=== PATIENT | female | born 1995 | race African-American/Black ===

== ENCOUNTER 2017-03-17 14:57 | Inpatient (IN) ==
--- NOTE | 2017-03-17 15:45 | Diag Imaging Result Doc PS360 ---
US OBS COMPLETE > 14 WKS - 03/17/2017 INDICATION: possible water broke TECHNIQUE: COMPARISON: None FINDINGS: There is a single intrauterine . Estimated gestational age is 18 weeks three days +/- 10 days. Estimated delivery date is 08/15/2017. Positioning is cephalic. Placenta is anterior. There is severe oligohydramnios. Cervix is closed measuring 3.5 cm. heart rate is 194 bpm. anatomy is grossly normal. No pelvic free fluid. IMPRESSION: Severe oligohydramnios compatible with premature rupture of membranes. Fetus is previable. Electronically signed by Yaniv Harkins 03/17/2017 3:42 PM
--- NOTE | 2017-03-17 15:55 | PROVIDER DOCUMENTATION ---
This chart was entered by Tenzin Oliver Scribe, acting as scribe for Ronald Garvey MD. HPI-Female /OB/Breast - General Chief Complaint: Female Stated Complaint: states water broke Time Seen by Provider: 03/17/17 14:59 Source: reports: patient Allergies/Adverse Reactions: Patient Allergies Allergy/AdvReac Type Severity Reaction Status Date / Time No Known Allergies Allergy Verified 03/17/17 16:32 Home Medications: Home Medication List Medication Instructions Recorded Confirmed Last Taken Type Pediatric Multivit Comb. No.49 1 cap PO DAILY 03/17/17 03/17/17 Unknown History [Flintstones Gummies] - History of Present Illness-Female /OB Nature of Presenting Problem: patient is a 21 y/o F that presents after feeling that she had to go to bathroom and had gush of clear fluid come out. She has had back pain since but no abdominal pain or bleeding. G 2 P 0 Ab 1, similar symptoms from previous . Patient has had no care, unsure when her LMP. Does patient report she is ?: Yes (maybe 18 weeks) Location of complaint: reports: other (back) Quality of Pain: reports: aching Severity in ED: reports: moderate Onset/Duration: reports: abrupt, just prior to arrival Timing: reports: still present, constant Context/Activities at Onset: reports: none Related Symptoms: reports: vaginal fluid leakage, other (back pain) Leakage of Fluid: heavy gush Sexual intercourse history: reports: Less Than 2 Months Ago, Single Partner Contraception: reports: none Modifying Factors: improves with: nothing Associated Symptoms: reports: back/neck pain. denies: nausea, vomiting Similar Symptoms Previously?: Yes Recently seen or treated by another doctor?: No - LMP/ History Menstrual Status: currently : 2 Para: 0 : 1 Prior Delivery: HCG confirmation: home preg test Care: none Review of Systems - Adult - REVIEW OF SYSTEMS - ADULT Constitutional: denies: chills, fever Eyes: denies: decreased vision, blurred vision, double vision Ears, Nose, Mouth & Throat: denies: ear pain, sinus problem, throat pain, throat swelling Cardiovascular: denies: chest pain, palpitations Respiratory: denies: cough, shortness of breath, wheezing Gastrointestinal: denies: abdominal pain, diarrhea, nausea, vomiting Genitourinary: reports: other (leakage of fluid). denies: dysuria Musculoskeletal: reports: back pain. denies: joint pain Integumentary: reports: no symptoms reported Neurological: denies: dizziness/vertigo, headache/migraines, syncope Psychiatric: reports: no symptoms reported Endocrine: reports: no symptoms reported Hematologic/Lymphatic: reports: no symptoms reported Allergic/Immunologic: reports: no symptoms reported All Other Systems: Reviewed and Negative Past History - Adult - PAST MEDICAL HISTORY-ADULT Review of Records: reports: Old Records Reviewed, Nursing Assessment Review, Medications Reviewed - PRIOR SURGERIES/PROCEDURES Surgical/Procedure History: reports: - IMMUNIZATION STATUS Childhood Immunizations: See Nurse Assessment Flu Vaccine: See Nurse Assessment - FAMILY HISTORY Family History: reviewed, not pertinent - SOCIAL HISTORY Smoking: non-smoker Living Situation: family Physical Exam-General - PHYSICAL EXAM-ADULT Initial Vital Signs Reviewed: Yes - CONSTITUTIONAL General Appearance: alert, mild distress - EYES Eyes: PERRL/EOMI, pink conjunctivae - HEAD, EARS, NOSE, MOUTH & THROAT HENMT: normocephalic/atraumatic, moist mucous membranes, normal ENT inspection - NECK Neck: non-tender, full range of motion, normal inspection - RESPIRATORY Respiratory: lungs clear, normal breath sounds, no respiratory distress, no accessory muscle use - CARDIOVASCULAR Cardiovascular: regular rate, rhythm, no edema, no murmur - GASTROINTESTINAL (ABDOMEN) Abdominal Exam: normal bowel sounds, non tender, soft, no organomegaly, no pulsatile mass - GENITOURINARY Female Genitalia/Pelvic Exam: other (Sterile Glove Exam performed, cervix soft, OS hard to palpate, as hand was being removed gush of fluid immediately came out ). negative: herpes-like ulcerations, lesions, mass - MUSCULOSKELETAL Back Exam: no CVA tenderness, no vertebral tenderness Extremity: normal range of motion, normal inspection, no pedal edema - SKIN Integumentary: normal color, warm/dry - NEUROLOGIC Neurologic: seamer operator II-XII nml as tested, no motor/sensory deficits - PSYCHIATRIC Psych/Mental Status: normal mood/affect, normal thought content, normal thought process, oriented x 3 Progress - PLAN OF CARE/RESULTS Progress/Plan/Lab Results: Vital Signs - 8 hr 03/17/17 14:58 09/21/17 15:14 Temperature 98.0 F Pulse Rate 97 H 96 H Respiratory Rate 20 14 Blood Pressure 143/77 131/80 O2 Sat by Pulse Oximetry 100 100 Laboratory Results - last 24 hr 03/17/17 03/17/17 03/17/17 13:50 15:00 15:18 WBC 9.16 RBC 3.92 L Hgb 10.5 L Hct 31.9 L MCV 81.4 MCH 26.8 L MCHC 32.9 L RDW Std Deviation 13.6 Plt Count 308 MPV 11.5 H Immature Gran % (Auto) 0.1 Neut % (Auto) 59.1 Lymph % (Auto) 33.6 Hartley % (Auto) 6.6 Eos % (Auto) 0.5 Baso % (Auto) 0.1 Immature Gran # (Auto) 0.01 Neut # (Auto) 5.41 Lymph # (Auto) 3.08 Hartley # (Auto) 0.60 H Eos # (Auto) 0.05 Baso # (Auto) 0.01 Ser , Semi-Qnt 8613.0 Membranes Rupture POSITIVE Orders Category Date Time Status US OBS COMPLETE > 14 WKS [US] Stat Exams 03/17/17 14:59 Completed QUANT TEST Stat Lab 03/17/17 15:18 Completed RUPTURE OF MEMBRANE EVALUATION [SERO] Stat Lab 03/17/17 15:00 Completed Stat u/s and Quant preg ordered, L&D was notified, they came and did swab to test for Amniotic fluid( positive result), relay worker was notified of patient, was contacted and he felt she was where need to be at in the ER 1525-U/S took patient over to radiology by nursing staff , even though u/s bedside was requested. U/S responded that the machine was too big to bring over to room and attempted to get her in a W/C FHTs were 140 bpm 1545- called U/S report to , patient has about 18 week old fetus but no Amniotic fluid noted 1547- paged Result Diagrams: 03/17/17 13:50 - ULTRASOUND (By Radiology) 1 US Study: Transvaginal (ob) Impression: Abnormal US Results: severe oligohydramnios compatible w/ premature ruputre of membranes , 18 w + - CONSULTS/PCP/HOSPITALIST Notification #1 *Consult/PCP/Hospitalist*: Time Discussed: 15:51 Departure - Departure Date of Disposition Decision: 03/17/17 Time of Disposition Decision: 15:52 DIAGNOSIS: Premature rupture of membranes Disposition: OTHER 70 Certified Medical Emergency: Emergent Condition: Stable - Critical Care Note This patient required my direct & personal management of CC.: Yes Total Time (mins): 45 Critical Care Statement: This patient required my direct personal management to treat or rule out processes, the absence of which, could potentiallly result in sudden, clinically significant life or limb threatening deterioration. Attestation - Physician/ LATASHA Attestation The physician spent face to face time with patient:: Yes Advanced Practice Provider documentation review:: Supervising physician onsite and consulted in the evaluation and care of this patient. The physician did have a face to face encounter with the patient. This chart was documented by the indicated scribe, (Tenzin Oliver, Scribe) and accurately reflects the services I performed and decisions made by me, Ronald Garvey MD, as attested by the provider's signature.
[2017-03-17] MEDS ORDERED: AMPICILLIN 2 GM/NS 2 GM/100 ML IVPB IV ONE (16:35)
[2017-03-17 16:52] LABS: MANUAL DIFF NEEDED? NO
[2017-03-17 16:54] LABS: BASO% 0.1 % (0.0-0.8); EOS# 0.05 X1000 (0.0-0.7); EOS% 0.5 % (0.0-10.0); HEMATOCRIT 31.9 % (37.0-47.0); HEMOGLOBIN 10.5 g/dL (12.0-16.0); IMM GRAN# 0.01 X1000 (0.0-0.04); IMM GRAN% 0.1 % (0.0-0.5); LYMPH# 3.08 X1000 (1.2-3.4); LYMPH% 33.6 % (20.5-51.1); MCH 26.8 PG (27-31); MCHC 32.9 g/dL (33-37); MCV 81.4 FL (81-99); MONO% 6.6 % (1.7-9.3); MPV 11.5 FL (7.4-10.4); NEUT% 59.1 % (42.2-75.2); PLT 308 X1000 (130-400); RBC 3.92 XMIL (4.2-5.4)
[2017-03-17] MEDS: LR 1,000 ML IV SCH (17:00)
[2017-03-17 17:51] LABS: URINE SOURCE VOIDED
[2017-03-17 18:02] LABS: UR AMPHETAMINES QUAL NONE DETECTED (NONE DETECT); UR BARBITUATES QUAL NONE DETECTED (NONE DETECT); UR BENZODIAZEPIN QUAL NONE DETECTED (NONE DETECT); UR CANNABINOIDS QUAL NONE DETECTED (NONE DETECT); UR COCAINE QUAL NONE DETECTED (NONE DETECT); UR MDMA QUAL NONE DETECTED (NONE DETECT); UR METHADONE QUAL NONE DETECTED (NONE DETECT); UR METHAMPHETAMINE QUAL NONE DETECTED (NONE DETECT); UR OPIATES QUAL NONE DETECTED (NONE DETECT); UR OXYCODONE QUAL NONE DETECTED (NONE DETECT); UR PCP QUAL NONE DETECTED (NONE DETECT); UR TCA QUAL NONE DETECTED (NONE DETECT)
[2017-03-17 18:06] LABS: BILIRUBIN URINE NEGATIVE (NEGATIVE); BLOOD URINE NEGATIVE (NEGATIVE); CLARITY CLEAR (CLEAR); COLOR YELLOW; GLUCOSE URINE NEGATIVE (NEGATIVE); LEUKOCYTES URINE NEGATIVE (NEGATIVE); NITRITE URINE NEGATIVE (NEGATIVE); PROTEIN URINE NEGATIVE (NEGATIVE); SP GRAVITY URINE 1.015; UROBILINOGEN URINE NORMAL
[2017-03-17 18:14] LABS: RPR NON-REACTIVE (NONREACTIVE)
[2017-03-17 18:19] LABS: RAPID HIV PRESUMPTIVE NEGATIVE
[2017-03-17] MEDS ORDERED: STADOL IV PRN (18:46)
[2017-03-17] MEDS: CYTOTEC VAG SCH (19:50)
--- NOTE | 2017-03-17 22:16 | HISTORY AND PHYSICAL ---
ADMITTING PHYSICIAN: Peter Vanegas MD. ADMITTING DIAGNOSIS: rupture of membranes. SUMMARY: Bridget Blair is a 21-year-old 2 para 0-1-0-0. She states that she has had care in [place], [place] and is approximately 18 weeks into the . We are attempting to get records from [place]. She presented to the emergency room reporting a spontaneous rupture of membranes at 1500 today. In the emergency room, a ROM plus was performed and was positive for rupture of membranes. An ultrasound was performed which showed an 18 and 3/7 weeks gestation, cephalic position. Heart rate was 194 and no amniotic fluid was noted. The patient was then transferred to labor and delivery for further care. PAST MEDICAL HISTORY: She denies any chronic medical or surgical illnesses. Her first ended in a section. She states that she was having bleeding and was performed. The infant survived for 5 days after and then diet. She is not sure of the gestational age. ALLERGIES: She denies any drug allergies. MEDICATIONS: Currently taking no medications. PHYSICAL EXAMINATION: GENERAL: Shows a well-developed, well-nourished female. She is afebrile. VITAL SIGNS: Stable. CARDIAC: Normal. PULMONARY: Normal. ABDOMEN: Nontender. PELVIC: I did not repeat her pelvic examination, but the ER doctor said that her cervix was soft and closed. EXTREMITIES: No clubbing, edema or cyanosis. IMPRESSION: 18-week rupture membranes. PLAN: Patient and I discussed the poor prognosis. I can give her no hope for a successful . Even if the infant were to survive, the high probability of lungs failing to develop is in itself likely to be fatal. There certainly is high risk of infections or pre-term labor. We are going to give the patient a little time to consider her options of either waiting for labor to begin or to start induction of labor, and we will start her on antibiotics and check baseline laboratories. cc: Peter Vanegas MD
[2017-03-17] MEDS: PHENERGAN IV PRN (22:33)
[2017-03-17] MEDS: SODIUM CHLORIDE 0.9% INJ PRN (22:33)
[2017-03-17] MEDS: STADOL IV PRN (22:34)
[2017-03-18] MEDS: CYTOTEC VAG SCH ×2 (00:08→05:16)
[2017-03-18] MEDS: AMPICILLIN 1 GM/NS 1 GM/50 ML IVPB IV SCH ×4 (00:08→13:45)
[2017-03-18] MEDS: STADOL IV PRN ×4 (02:53→13:17)
[2017-03-18] MEDS: LR 1,000 ML IV SCH ×2 (02:55→12:00)
[2017-03-18] MEDS ORDERED: CYTOTEC ONE (05:08)
[2017-03-18] MEDS: PHENERGAN IV PRN (07:42)
[2017-03-18] MEDS: SODIUM CHLORIDE 0.9% INJ PRN (07:42)
[2017-03-18] MEDS ORDERED: CYTOTEC PR ONE (09:47)
[2017-03-18 12:51] LABS: RUBELLA SCREEN IMMUNE (IMMUNE)
[2017-03-18] MEDS ORDERED: PITOCIN 30 UNITS/LR 30 UNITS/500 ML IV.SOLN ONE (14:51)
[2017-03-18] MEDS ORDERED: CYTOTEC PO PRN (15:50)
[2017-03-18] MEDS ORDERED: BENADRYL PO PRN (15:50)
[2017-03-18] MEDS ORDERED: BOOSTRIX VACCINE IM ONE (15:50)
[2017-03-18] MEDS ORDERED: BENADRYL IV PRN (15:50)
[2017-03-18] MEDS ORDERED: M-M-R II VACCINE SUBQ ONE (15:50)
[2017-03-18] MEDS ORDERED: HYDROXYZINE PO PRN (15:50)
[2017-03-18] MEDS ORDERED: MOTRIN PO PRN (15:50)
[2017-03-18] MEDS ORDERED: HYDROXYZINE IM PRN (15:50)
[2017-03-18] MEDS ORDERED: NORCO-5 PO PRN (15:50)
[2017-03-18] MEDS ORDERED: MINERAL OIL PO PRN (15:50)
[2017-03-18] MEDS ORDERED: NORCO-10 PO PRN (15:50)
[2017-03-18] MEDS ORDERED: XYLOCAINE-MPF 1% INJ PRN (15:50)
[2017-03-18] MEDS ORDERED: PITOCIN IM PRN (15:50)
[2017-03-18] MEDS ORDERED: PITOCIN 30 UNITS/LR 30 UNITS/500 ML IV.SOLN IV ONE (15:50)
[2017-03-18] MEDS ORDERED: PITOCIN 20 UNITS/LR 20 UNITS/1,000 ML IV.SOLN IV SCH (15:50)
[2017-03-18] MEDS ORDERED: AMBIEN PO PRN (15:50)
[2017-03-18] MEDS ORDERED: PERI MEDS (DERMOPLAST/NUPERCAINAL/TUCKS) MISC PRN (15:50)
[2017-03-18] MEDS ORDERED: PERICOLACE PO SCH (21:00)
[2017-03-19 05:59] LABS: MANUAL DIFF NEEDED? NO
[2017-03-19 06:15] LABS: BASO% 0.1 % (0.0-0.8); EOS# 0.15 X1000 (0.0-0.7); EOS% 1.8 % (0.0-10.0); HEMATOCRIT 31.2 % (37.0-47.0); IMM GRAN# 0.01 X1000 (0.0-0.04); IMM GRAN% 0.1 % (0.0-0.5); LYMPH# 3.25 X1000 (1.2-3.4); LYMPH% 39.2 % (20.5-51.1); MCH 26.7 PG (27-31); MCHC 32.1 g/dL (33-37); MCV 83.4 FL (81-99); MONO# 0.62 X1000 (0.11-0.59); MONO% 7.5 % (1.7-9.3); MPV 10.8 FL (7.4-10.4); NEUT% 51.3 % (42.2-75.2); PLT 259 X1000 (130-400); RBC 3.74 XMIL (4.2-5.4)
--- NOTE | 2017-03-19 08:10 | OPERATIVE NOTE ---
PROCEDURE DATE: 03/18/2017 PREOPERATIVE DIAGNOSIS: Intrauterine at 18 weeks, spontaneous rupture of membranes. Poor prognosis. POST DELIVERY DIAGNOSES: Intrauterine at 18 weeks, spontaneous rupture of membranes. Poor prognosis. PROCEDURE: Vaginal delivery of a nonviable infant. PHYSICIAN: Dr. Montano. ANESTHESIA: IV sedation. FINDINGS: Nonviable infant delivered. Placenta delivered spontaneous and inspected, found to be intact. There are no lacerations or tears. Please refer to Ms. Blair' H and P. She was admitted with spontaneous rupture of membranes. She started on Cytotec and received multiple doses of Cytotec and spontaneously delivered a nonviable . After the infant delivered, approximately 5 minutes later with pushing, patient delivered the placenta. It was inspected and found to be intact. All counts were correct. ESTIMATED BLOOD LOSS: 100 mL. Expect routine . Will plan on keeping patient till tomorrow morning however she desires discharge today. Will evaluate after 6 hours or so. cc: MD Peter Boyd MD
[2017-03-19] MEDS ORDERED: FLINTSTONES COMPLETE PO SCH (09:00)
[2017-03-19 09:28] VITALS: BP 94/52
[2017-03-19 10:00] LABS: HEPATITIS B SURFACE ANTIGEN SEE COMMENTS
[2017-03-19 10:01] LABS: HIV ANTIBODY SCREEN SEE COMMENTS
--- NOTE | 2017-03-20 15:13 | DISCHARGE SUMMARY ---
ADMISSION DATE: 03/17/2017 DISCHARGE DATE: 03/19/2017 ADMITTING DIAGNOSES: 1. Intrauterine at 18 weeks. 2. premature rupture of membranes. 3. Oligohydramnios. DISCHARGE DIAGNOSES: 1. Intrauterine at 18 weeks. 2. premature rupture of membranes. 3. Oligohydramnios. PROCEDURES: Vaginal delivery of a nonviable fetus. CONDITION: Stable. DIET: As tolerated. ACTIVITY: Routine post- instructions. She is to follow up in 6 weeks. She is to take Motrin 800 for pain, [id number] vitamins and iron tablets. HOSPITAL COURSE: Please refer to Ms. Blair' Zoe P and delivery note. She was admitted at 18 weeks with rupture of membranes. No fluid was noted. Decision made to proceed with delivery. She was given Cytotec. She delivered approximately 12 hours later. Placenta delivered intact. She is now approximately 24 hours post delivery, and is without complaints, doing well. She rested well last night. She tolerated her breakfast. She is up ambulating and moving around. PHYSICAL EXAMINATION: Vital signs: Her vital signs are stable. She is afebrile. general: She is alert and cooperative. She does not appear to be in any distress. Abdomen: Slightly distended. Uterus is firm underneath the umbilicus. extremities: There is +2 lower extremity edema. LABORATORY: Hemoglobin 10. DISPOSITION: We will DC with above instructions. cc: MD Peter Boyd MD
== END 2017-03-19 14:03 | disposition home or self-care (01) ==
LOC: P.ED 14:57 → P.LD 16:05
PROVIDERS: ADMIT Obstetrics & Gynecology; ATTEND Obstetrics & Gynecology